=== PATIENT | female | born 1985 | race Caucasian/White ===

== ENCOUNTER 2021-12-14 08:59 | Emergency (ER) | payer OTHER ==
[~2021-12-14] VITALS: Ht 160 cm; Wt 88.0 kg
[2021-12-14 09:07] VITALS: BP 119/84
[2021-12-14] MEDS ORDERED: ONDANSETRON HCL 4MG/2ML INJ IV STA (09:13)
[2021-12-14] MEDS ORDERED: SODIUM CHLORIDE 0.9% 1,000 ML IV ONE (09:15)
[2021-12-14] MEDS ORDERED: LOPERAMIDE HCL 2MG CAPSULE PO ONE (09:15)
[2021-12-14 09:56] LABS: HEMATOCRIT. 43.5 % (36.0-48.0); HEMOGLOBIN. 15.1 g/dL (12.0-16.0); MEAN CORPUSCULAR HEMOGLOBIN 32.9 pg (28.0-32.0); MEAN CORPUSCULAR VOLUME 94.8 fL (81.0-99.0); MEAN PLATELET VOLUME 9.5 fl (7.4-10.4); PLATELET 239 x1000/uL (130-400); RED BLOOD CELL COUNT 4.59 mill/uL (4.2-5.4)
[2021-12-14 10:01] LABS: CHLORIDE 103 mEq/L (98-107)
[2021-12-14 10:14] LABS: HCG SCREEN NEGATIVE
[2021-12-14 10:25] LABS: PLATELET ESTIMATE NORMAL
[2021-12-14] MEDS ORDERED: METRONIDAZOLE 500MG TABLET PO ONE (13:30)
[2021-12-14] MEDS ORDERED: LEVOFLOXACIN 500MG TABLET PO ONE (13:30)
[2021-12-14 14:49] LABS: CLARITY URINE CLEAR (CLEAR); COLOR URINE YELLOW (YELLOW); KETONES URINE TRACE (NEGATIVE); LEUKOCYTE ESTERASE URINE NEGATIVE (NEGATIVE); NITRITE URINE NEGATIVE (NEGATIVE); OCCULT BLOOD URINE NEGATIVE (NEGATIVE); PH URINE 6.5 (4.5-8.0); PROTEIN URINE NEGATIVE (NEGATIVE); SPECIFIC GRAVITY URINE 1.009 (1.005-1.030); UROBILINOGEN URINE 0.2 E.U./dL (0.2-1.0)
[2021-12-14] MEDS ORDERED: LOPE2TAB26 MT (15:25)
[2021-12-14] MEDS ORDERED: METR500T MT (15:25)
[2021-12-14] MEDS ORDERED: ONDA4TAB11 PO (15:25)
[2021-12-14] MEDS ORDERED: LEVO500T89 MT (15:25)
== END 2021-12-14 15:42 | disposition home or self-care (01) ==
LOC: ER 08:59
DX: R19.7 Diarrhea, unspecified (principal); Z88.5 Allergy status to narcotic agent; Z88.2 Allergy status to sulfonamides
CPT/HCPCS: 36415; 74176; 80053; 81003; 83690; 84703; 85025; 87040; 87804; 93005; 96361; 96374; 99285; J2405; J7030